=== PATIENT | female | born 1980 | race Caucasian/White ===

== ENCOUNTER → 2018-10-03 | Outpatient (REF) | payer OTHER | LOC: M SFHCPLAZ 10:13 | PROVIDERS: ATTEND Dermatology | DX: D21.21 Benign neoplasm of connective and other soft tissue of right lower limb, including hip (principal) ==

== ENCOUNTER → 2018-12-02 | Outpatient (CLI) | payer OTHER ==
--- NOTE | 2018-12-02 12:53 | REP ---
Right hand four views : There is no fracture or dislocation. Mineralization and joint spaces are normal. There are no calcifications or foreign bodies. Impression: Negative right hand . Electronically Signed by Darryl Harris MD 12/02/2018 12:45 P
== END ==
LOC: M ADAMS 10:19
PROVIDERS: ATTEND Physician Assistant Medical
DX: S60.221A Contusion of right hand, initial encounter (principal); X58.XXXA Exposure to other specified factors, initial encounter; Y92.89 Other specified places as the place of occurrence of the external cause

== ENCOUNTER 2022-04-22 11:53 | Emergency (ER) | payer OTHER, SELFPAY ==
[~2022-04-22] VITALS: Ht 162.6 cm; Wt 65.4 kg
[2022-04-22] MEDS ORDERED: BACT800T5 PO (14:23)
[2022-04-22 14:34] VITALS: BP 135/82
== END 2022-04-22 14:36 | disposition home or self-care (01) ==
LOC: M ED 11:53
DX: L03.313 Cellulitis of chest wall (principal); F17.200 Nicotine dependence, unspecified, uncomplicated